=== PATIENT | female | born 1985 | race Hispanic/Latino ===

== ENCOUNTER → 2024-05-02 10:28 | Outpatient (REF) | payer OTHER, SELFPAY ==
[2024-05-02 11:15] LABS: Hematocrit 34.4 % (37.0-47.0); Hemoglobin 10.8 g/dL (12.0-16.0); Mean Corp Hgb Conc. 31.4 g/dL (33.0-37.0); Mean Corpuscular Hgb 24.5 pg (27.0-31.0); Mean Corpuscular Volume 78.2 fL (81.0-99.0); Mean Platelet Volume 11.1 fL (7.4-10.4); Platelet Count 303 10^3/uL (130-400); Red Cell Dist. Width 15.3 % (11.5-14.5); White Blood Cell Count 6.1 10^3/uL (4.8-10.8)
[2024-05-02 11:47] LABS: Blood Urea Nitrogen 14 mg/dl (7-17); Calcium 10.1 mg/dl (8.4-10.2); Carbon Dioxide 24 mmol/L (22-30); Chloride 105 mmol/L (98-107); Glucose 93 mg/dl (70-99); Potassium 4.3 mmol/L (3.5-5.1); Sodium 136 mmol/L (135-145); eGFR > 60.00
[2024-05-02 11:53] LABS: Iron < 20 ug/dl (37-170)
[2024-05-02 11:56] LABS: Total Iron Binding Capacity 466 ug/dl (265-497)
[2024-05-02 12:22] LABS: Ferritin 4.4 ng/ml (6.24-137)
[2024-05-02 12:23] LABS: Glycohemoglobin (HgbA1c) 5.6 % (4.0-5.6)
== END ==
LOC: REG 10:28
PROVIDERS: ATTENDING PHYSICIAN Nurse Practitioner Adult Health
DX: R73.03 Prediabetes (principal); D64.9 Anemia, unspecified
CPT/HCPCS: 36415; 80048; 82728; 83036; 83540; 83550; 85027

== ENCOUNTER → 2024-07-20 10:24 | Outpatient (REF) | payer OTHER, SELFPAY ==
[2024-07-20 10:45] LABS: Hematocrit 33.8 % (37.0-47.0); Hemoglobin 10.8 g/dL (12.0-16.0); Mean Corpuscular Hgb 23.4 pg (27.0-31.0); Mean Corpuscular Volume 73.3 fL (81.0-99.0); Mean Platelet Volume 10.5 fL (7.4-10.4); Platelet Count 303 10^3/uL (130-400); Red Blood Cell Count 4.61 10^6/uL (4.20-5.40); Red Cell Dist. Width 16.6 % (11.5-14.5); White Blood Cell Count 7.8 10^3/uL (4.8-10.8)
[2024-07-20 11:14] LABS: Iron 37 ug/dl (37-170)
[2024-07-20 11:24] LABS: Percent Saturation 7 % (20-50); Total Iron Binding Capacity 465 ug/dl (265-497)
[2024-07-20 11:47] LABS: Ferritin 4.2 ng/ml (6.24-137)
[2024-07-20 12:01] LABS: Vitamin B12 911 pg/ml (239-931)
== END ==
LOC: CLINIC 10:24
PROVIDERS: ATTENDING PHYSICIAN Nurse Practitioner Adult Health
DX: D50.0 Iron deficiency anemia secondary to blood loss (chronic) (principal)
CPT/HCPCS: 36415; 82607; 82728; 83540; 83550; 85027

== ENCOUNTER → 2024-11-11 16:42 | Outpatient (REF) | payer OTHER, SELFPAY ==
[2024-11-11 17:49] LABS: Hematocrit 33.4 % (37.0-47.0); Hemoglobin 10.5 g/dL (12.0-16.0); Mean Corp Hgb Conc. 31.4 g/dL (33.0-37.0); Mean Corpuscular Hgb 25.5 pg (27.0-31.0); Mean Corpuscular Volume 81.1 fL (81.0-99.0); Mean Platelet Volume 10.8 fL (7.4-10.4); Platelet Count 296 10^3/uL (130-400); Red Blood Cell Count 4.12 10^6/uL (4.20-5.40); Red Cell Dist. Width 15.5 % (11.5-14.5); White Blood Cell Count 11.2 10^3/uL (4.8-10.8)
[2024-11-11 18:11] LABS: Iron 29 ug/dl (37-170)
[2024-11-11 18:21] LABS: Percent Saturation 5 % (20-50); Total Iron Binding Capacity 499 ug/dl (265-497)
[2024-11-11 18:47] LABS: Ferritin 6.2 ng/ml (6.24-137)
== END ==
LOC: REG 16:42
PROVIDERS: ATTENDING PHYSICIAN Nurse Practitioner Adult Health
DX: D50.0 Iron deficiency anemia secondary to blood loss (chronic) (principal)
CPT/HCPCS: 36415; 82728; 83540; 83550; 85027

== ENCOUNTER → 2025-03-18 15:55 | Outpatient (REF) | payer OTHER, SELFPAY ==
[2025-03-18 17:15] LABS: Hematocrit 27.5 % (37.0-47.0); Hemoglobin 8.9 g/dL (12.0-16.0); Mean Corp Hgb Conc. 32.4 g/dL (33.0-37.0); Mean Corpuscular Volume 83.8 fL (81.0-99.0); Platelet Count 356 10^3/uL (130-400); Red Cell Dist. Width 15.1 % (11.5-14.5)
[2025-03-18 17:40] LABS: Iron 131 ug/dl (37-170)
[2025-03-18 17:50] LABS: Total Iron Binding Capacity 498 ug/dl (265-497)
[2025-03-18 18:05] LABS: Vitamin D, 25-OH*** 28.5 ng/mL (30-80)
[2025-03-18 18:23] LABS: Ferritin 3.7 ng/ml (6.24-137)
[2025-03-18 18:38] LABS: Vitamin B12 369 pg/ml (239-931)
== END ==
LOC: CLINIC 15:55
PROVIDERS: ATTENDING PHYSICIAN Nurse Practitioner Adult Health
DX: D50.0 Iron deficiency anemia secondary to blood loss (chronic) (principal); E55.9 Vitamin D deficiency, unspecified
CPT/HCPCS: 36415; 82306; 82607; 82728; 83540; 83550; 85027

== ENCOUNTER → 2025-06-23 15:11 | Outpatient (REF) | payer OTHER, SELFPAY ==
[2025-06-23 16:01] LABS: Hematocrit 38.7 % (37.0-47.0); Hemoglobin 12.9 g/dL (12.0-16.0); Mean Corp Hgb Conc. 33.3 g/dL (33.0-37.0); Mean Corpuscular Volume 89.2 fL (81.0-99.0); Platelet Count 264 10^3/uL (130-400); Red Cell Dist. Width 13.9 % (11.5-14.5)
[2025-06-23 17:01] LABS: ALT (SGPT) 33 U/L (0-35); AST (SGOT) 30 U/L (14-36); Albumin 4.3 g/dl (3.5-5.0); Alkaline Phosphatase 64 U/L (38-126); Blood Urea Nitrogen 13 mg/dl (7-17); Calcium 10.4 mg/dl (8.4-10.2); Carbon Dioxide 23 mmol/L (22-30); Chloride 105 mmol/L (98-107); Glucose 93 mg/dl (70-99); Iron 164 ug/dl (37-170); Potassium 4.1 mmol/L (3.5-5.1); Sodium 135 mmol/L (135-145); Total Protein 6.9 g/dl (6.3-8.2); eGFR > 60.00
[2025-06-23 17:09] LABS: Vitamin D, 25-OH*** 49.6 ng/mL (30-80)
[2025-06-23 17:10] LABS: Total Iron Binding Capacity 382 ug/dl (265-497)
[2025-06-23 17:27] LABS: Ferritin 9.6 ng/ml (6.24-137)
[2025-06-23 17:41] LABS: Vitamin B12 > 1000 pg/ml (239-931)
[2025-06-24 11:06] LABS: Glycohemoglobin (HgbA1c) 5.6 % (4.0-5.6)
== END ==
LOC: CLINIC 15:11
PROVIDERS: ATTENDING PHYSICIAN Nurse Practitioner Adult Health
DX: D50.0 Iron deficiency anemia secondary to blood loss (chronic) (principal)
CPT/HCPCS: 36415; 80053; 82306; 82607; 82728; 83036; 83540; 83550; 85027